=== PATIENT | female | born 1970 | race Caucasian/White ===

== ENCOUNTER 2019-11-01 21:46 | Emergency (ER) | payer OTHER ==
[2019-11-01 21:51] VITALS: TEMP 97.7; BMI 22.4
--- NOTE | 2019-11-01 22:19 | PDOC ---
*Physical Exam - Vital Signs Last Vital Signs Temp Pulse Resp BP Pulse Ox 97.7 F 75 18 122/90 99 11/01/19 21:49 11/01/19 21:49 11/01/19 21:49 11/01/19 21:49 11/01/19 21:49 ED Treatment Course - LABORATORY CBC & Chemistry Diagram: 11/01/19 23:36 11/01/19 23:36 Medical Decision Making - Medical Decision Making 11/01/19 22:19 Patient seen by the advanced practice provider under my supervision. Ancillary testing reviewed as necessary. I agree with plan as outlined by the advanced practice provider. Discharge - Discharge Information Problems reviewed: Yes Clinical Impression/Diagnosis: GERD (gastroesophageal reflux disease) Qualifiers: Esophagitis presence: esophagitis presence not specified Qualified Code(s): K21.9 - Gastro-esophageal reflux disease without esophagitis Condition: Stable Disposition: HOME - Follow up/Referral Referrals: Paulie Holbrook DO [Staff Physician] - 2 Days - Patient Discharge Instructions Patient Printed Discharge Instructions: DI for Gastroesophageal Reflux Disease (GERD) Additional Instructions: Thank you for choosing [facility]. It was a pleasure taking care of you. You may take Pepcid 20 mg daily for your symptoms You were referred to GI for further evaluation Please also follow-up with your regular doctor Return to the Emergency Department if your symptoms worsen or persist or have other concerning symptoms. Radha por elegir el [facility]. Fue un placer cuidar de ti. Puede jaimie Pepcid 20 mg al da para felisha sntomas. Lo remitieron a GI para danelle evaluacin adicional Por favor, cindy un seguimiento con currie mdico habitual. Regrese al departamento de emergencias si felisha sntomas empeoran o persisten o si tiene otros sntomas preocupantes. Print Language: MOHAWK - Post Discharge Activity
[2019-11-01] MEDS ORDERED: FAMOTIDINE 20 MG TABLET PO ONE (22:35)
[2019-11-01] MEDS ORDERED: MAG HYDROX/AL HYDROX/SIMETH 30 ML UNIT-DOSE CUP PO ONE (22:35)
--- NOTE | 2019-11-01 22:57 | PDOC ---
History of Present Illness - General Chief Complaint: Chest Pain Stated Complaint: CHEST PAIN Time Seen by Provider: 11/01/19 22:17 History Source: Patient Exam Limitations: No Limitations Past History - Past Medical History Allergies/Adverse Reactions: Allergies Allergy/AdvReac Type Severity Reaction Status Date / Time No Known Allergies Allergy Verified 05/29/16 10:38 Home Medications: Ambulatory Orders Ferrous Sulfate 325 mg PO DAILY 05/29/16 Omeprazole 20 mg PO DAILY 05/29/16 Pantoprazole Sodium [Protonix] 40 mg PO DAILY #30 tablet. 05/29/16 COPD: No Diabetes: Yes ( pre) - Psycho Social/Smoking Cessation Hx Smoking History: Never smoked Have you smoked in the past 12 months: No Hx Alcohol Use: No Drug/Substance Use Hx: No Substance Use Type: None Hx Substance Use Treatment: No *Physical Exam - Vital Signs Last Vital Signs Temp Pulse Resp BP Pulse Ox 97.7 F 75 18 122/90 99 11/01/19 21:49 11/01/19 21:49 11/01/19 21:49 11/01/19 21:49 11/01/19 21:49 - Physical Exam General Appearance: No: Apparent Distress Respiratory/Chest: positive: Lungs Clear, Normal Breath Sounds. negative: Respiratory Distress Cardiovascular: positive: Regular Rhythm, Regular Rate, S1, S2. negative: Murmur Gastrointestinal/Abdominal: positive: Normal Bowel Sounds, Soft. negative: Tender, Distended, Guarding, Rebound Extremity: negative: Pedal Edema, Swelling, Calf Tenderness Neurologic: positive: Alert, Normal Mood/Affect Heart Score/ECG Review - History History: Slightly suspicious - Electrocardiogram EKG: Normal - Age Age: 45-65 - Risk Factors Risk Factors Heart Score: Yes Positive family hx of cardiac disease Based on the list above the patient has:: 1-2 risk factors - Troponin Troponin: </= normal limit - Score Heart Score - Total: 2 ED Treatment Course - LABORATORY CBC & Chemistry Diagram: 11/01/19 23:36 11/01/19 23:36 - ADDITIONAL ORDERS Additional order review: Laboratory Results 11/01/19 11/01/19 23:36 23:36 Sodium 140 Potassium 3.9 Chloride 108 H Carbon Dioxide 25 Anion Gap 6 L BUN 15.4 Creatinine 0.5 L Est GFR (CKD-EPI)AfAm 133.58 Est GFR (CKD-EPI)NonAf 115.25 Random Glucose 100 Calcium 8.9 Total Bilirubin 0.5 AST 16 ALT 25 Alkaline Phosphatase 71 Troponin I < 0.02 Total Protein 6.9 Albumin 3.5 11/01/19 23:36 RBC 4.27 MCV 76.1 L MCHC 32.9 RDW 17.6 H MPV 7.9 Neutrophils % 52.1 Lymphocytes % 34.7 D Monocytes % 7.8 Eosinophils % 4.6 H Basophils % 0.8 - RADIOLOGY Radiology Studies Ordered: Category Date Time Status CHEST PA & LAT [RAD] Stat Radiology 11/01/19 22:36 Taken - Medications Given in the ED: ED Medications Discontinued Medications Generic Name Dose Route Start Last Admin Trade Name Freq PRN Reason Stop Dose Admin Al Hydroxide/Mg Hydroxide 30 ml 11/01/19 22:35 11/01/19 23:19 Mylanta Oral Suspension - PO 11/01/19 22:36 30 ml ONCE ONE Administration Famotidine 20 mg 11/01/19 22:35 11/01/19 23:19 Pepcid - PO 11/01/19 22:36 20 mg ONCE ONE Administration Medical Decision Making - Medical Decision Making 49 y/o F with no sig PMH presents with substernal chest burning/pressure like sensation x 4 days with mild SOB. Sxs are worse after food intake. Sxs are nonexertional. Denies fever, URI sxs, abd pain, n/v/d, recent travel, calf pain , leg swelling. FH with Mom who had AL at age 38. Could be GERD However, will also r/o ACS EKG: NSR at 68 bpm, TWI lead III Plan: Labs, CXR, pepcid, maalox, reassess 11/01/19 22:52 Labs reviewed and unremarkable CXR negative HS is 2 Likely GERD Will refer to GI stable for dc 11/02/19 01:22 Discharge - Discharge Information Problems reviewed: Yes Clinical Impression/Diagnosis: GERD (gastroesophageal reflux disease) Qualifiers: Esophagitis presence: esophagitis presence not specified Qualified Code(s): K21.9 - Gastro-esophageal reflux disease without esophagitis Condition: Stable Disposition: HOME - Admission No - Additional Discharge Information Prescription Drug Monitoring Program (I-STOP) results: I-STOP not reviewed - Follow up/Referral Referrals: Paulie Holbrook DO [Staff Physician] - 2 Days - Patient Discharge Instructions Patient Printed Discharge Instructions: DI for Gastroesophageal Reflux Disease (GERD) Additional Instructions: Thank you for choosing [facility]. It was a pleasure taking care of you. You may take Pepcid 20 mg daily for your symptoms You were referred to GI for further evaluation Please also follow-up with your regular doctor Return to the Emergency Department if your symptoms worsen or persist or have other concerning symptoms. Radha por elegir el [facility]. Fue un placer cuidar de ti. Puede jaimie Pepcid 20 mg al da para felisha sntomas. Lo remitieron a GI para danelle evaluacin adicional Por favor, cindy un seguimiento con currie mdico habitual. Regrese al departamento de emergencias si felisha sntomas empeoran o persisten o si tiene otros sntomas preocupantes. Print Language: CROATIAN - Post Discharge Activity
[2019-11-01] MEDS ORDERED: FAMOTIDINE 20 MG TABLET ONE (23:11)
[2019-11-01] MEDS ORDERED: MAG HYDROX/AL HYDROX/SIMETH 30 ML UNIT-DOSE CUP ONE (23:11)
[2019-11-02 00:13] LABS: BASO % 0.8 % (0-2.0); EOS % 4.6 % (0-4.5); HEMATOCRIT 32.5 % (32.4-45.2); HEMOGLOBIN 10.7 GM/dL (10.7-15.3); LYMPH % 34.7 % (8-40); MCHC 32.9 g/dl (32.0-36.0); MEAN CELL VOLUME 76.1 fl (80-96); MEAN PLT VOLUME 7.9 fl (7.5-11.1); MONO % 7.8 % (3.8-10.2); NEUT % 52.1 % (42.8-82.8); PLATELET COUNT 284 K/MM3 (134-434); RBC 4.27 M/mm3 (3.60-5.2); RDW 17.6 % (11.6-15.6); WHITE BLOOD COUNT 5.2 K/mm3 (4.0-10.0)
[2019-11-02 01:03] LABS: ALBUMIN 3.5 g/dl (3.4-5.0); BILIRUBIN,TOTAL 0.5 mg/dL (0.2-1); BLOOD UREA NITROGEN 15.4 mg/dL (7-18); CALCIUM 8.9 mg/dL (8.5-10.1); CREATININE 0.5 mg/dL (0.55-1.3); POTASSIUM 3.9 mmol/L (3.5-5.1); TOT PROT 6.9 g/dl (6.4-8.2)
[2019-11-02 02:13] VITALS: BP 129/93; PULSE 70
--- NOTE | 2019-11-02 11:53 | EKG ---
Test Reason : Blood Pressure : / mmHG Vent. Rate : 068 BPM Atrial Rate : 068 BPM P-R Int : 140 ms QRS Dur : 078 ms QT Int : 370 ms P-R-T Axes : 031 015 011 degrees QTc Int : 393 ms NORMAL SINUS RHYTHM NONSPECIFIC ST ABNORMALITY ABNORMAL ECG WHEN COMPARED WITH ECG OF 29-MAY-2016 10:42, NO SIGNIFICANT CHANGE WAS FOUND Confirmed by DESTINEY DEVINE MD ([id number]) on 11/02/2019 11:53:05 AM Referred By: Confirmed By:DESTINEY DEVINE MD
== END 2019-11-02 02:15 | disposition home or self-care (01) ==
LOC: JER 21:46
DX: K21.9 Gastro-esophageal reflux disease without esophagitis (principal)
CPT/HCPCS: 36415; 71046-TC-FY; 80053; 84484; 85025; 93005; 93010; 99285-25